=== PATIENT | male | born 1985 | race American Indian/Alaskan Native ===

== ENCOUNTER 2018-05-12 01:51 | Emergency (ER) | payer BC ==
[2018-05-12 02:05] VITALS: RESP 14; O2SAT 98
[2018-05-12] MEDS ORDERED: Sodium Chloride 0.9% 500 ML IV ONE ×2 (02:50→03:08)
[2018-05-12 03:12] LABS: BASO % 0.6 % (0.0-2.0); EOS # 0.1 K/uL (0.0-0.7); EOS % 2.7 % (0.0-4.0); HEMOGLOBIN 13.8 g/dL (12.0-18.0); LYMPH # 1.1 K/uL (1.0-4.3); LYMPH % 40.1 % (20.0-40.0); MEAN CELL VOLUME 81.5 fL (80.0-94.0); MEAN CORPUSCULAR HEMOGLOBIN 26.9 pg (27.0-31.0); MEAN PLATELET VOLUME 9.7 fL (7.2-11.7); MONO # 0.3 K/uL (0.0-0.8); MONO % 9.7 % (0.0-10.0); NEUT # 1.3 K/uL (1.8-7.0); NEUT % 46.9 % (50.0-75.0); NRBC % 0.2 % (0.0-2.0); RBC 5.14 Mil/uL (4.40-5.90); RED CELL DISTRIBUTION WIDTH 14.6 % (11.5-14.5); WHITE BLOOD COUNT 2.8 K/uL (4.8-10.8)
[2018-05-12 03:13] LABS: ALBUMIN 4.6 g/dL (3.5-5.0); BLOOD UREA NITROGEN 11 mg/dL (9-20); CALCIUM 9.3 mg/dl (8.6-10.4); GFR NON-AFRICAN AMERICAN > 60
[2018-05-12 03:14] LABS: ALB/GLOB RATIO 1.7 (1.0-2.1); ALT/SGPT 39 U/L (21-72); AST/SGOT 23 U/L (17-59)
[2018-05-12 03:44] LABS: URINE BILIRUBIN NEGATIVE (NEGATIVE); URINE BLOOD NEGATIVE (NEGATIVE); URINE CLARITY Clear (Clear); URINE COLOR Yellow (YELLOW); URINE GLUCOSE (UA) NORMAL (Normal); URINE LEUKOCYTE ESTERASE NEG Leu/uL (Negative); URINE PROTEIN NEGATIVE (NEGATIVE)
[2018-05-12 03:58] VITALS: BP 99/60; PULSE 58; TEMP 98.6
--- NOTE | 2018-05-12 04:09 | C.PDOC ---
History Of Present Illness 32 year old male presents to the ED with a variety of symptoms, body aches, malaise, sneezing, itchy watery eyes. Patient also c/o intermittent chest tightness for the past few years. Patient did not take any medications at home for his symptoms. Patient denies fever, chills, nausea, vomit, diarrhea, rash, abdominal pain, rash, recent travel, sick contacts. Time Seen by Provider: 05/12/18 02:17 Chief Complaint (Nursing): Headache History Per: Patient History/Exam Limitations: no limitations Onset/Duration Of Symptoms: Days Current Symptoms Are (Timing): Still Present Quality: "Pain" Additional History Per: Patient Past Medical History Reviewed: Historical Data, Nursing Documentation, Vital Signs Vital Signs: Last Vital Signs Temp 98.6 F 05/12/18 03:57 Pulse 58 L 05/12/18 03:57 Resp 14 05/12/18 03:57 BP 99/60 L 05/12/18 03:57 Pulse Ox 98 05/12/18 03:57 - Medical History PMH: No Chronic Diseases Surgical History: No Surg Hx Family History: States: Unknown Family Hx - Social History Hx Alcohol Use: No Hx Substance Use: No - Immunization History Hx Tetanus Toxoid Vaccination: Yes Hx Influenza Vaccination: No Hx Pneumococcal Vaccination: No Review Of Systems Constitutional: Positive for: Malaise. Negative for: Fever, Chills ENT: Negative for: Nose Discharge, Nose Congestion Cardiovascular: Positive for: Chest Pain Respiratory: Negative for: Cough, Shortness of Breath Gastrointestinal: Negative for: Nausea, Vomiting, Abdominal Pain, Diarrhea Neurological: Negative for: Weakness, Numbness, Headache, Dizziness Physical Exam - Physical Exam Appears: Non-toxic, No Acute Distress Skin: Normal Color, Warm, Dry Head: Atraumatic, Normacephalic Eye(s): bilateral: Normal Inspection Oral Mucosa: Moist Neck: Normal ROM, Supple Chest: Symmetrical Cardiovascular: Rhythm Regular Respiratory: Normal Breath Sounds, No Rales, No Rhonchi, No Wheezing Gastrointestinal/Abdominal: Soft, No Tenderness, No Guarding, No Rebound Extremity: Normal ROM, No Tenderness, No Swelling Neurological/Psych: Oriented x3, Normal Speech, Normal Cognition Gait: Steady ED Course And Treatment - Laboratory Results Result Diagrams: 05/12/18 03:01 05/12/18 03:01 ECG: Interpreted By Me ECG Rhythm: Sinus Bradycardia (58) ECG Interpretation: No Acute Changes O2 Sat by Pulse Oximetry: 98 (ON RA) Pulse Ox Interpretation: Normal Progress Note: Plan: - Labs. - IV fluids. - Toradol 15 mg IVP. - UA. Patient reports improvement after medication was given. Patient's lab results reviewed and discussed with patient. Patient was advised to follow up with PMD. Disposition Discussed With Dr.: [email or web address] Counseled Patient/Family Regarding: Diagnosis, Need For Followup, Rx Given - Disposition Referrals: [facility] [Outside] Disposition: HOME/ ROUTINE Disposition Time: 04:06 Condition: STABLE Additional Instructions: Please follow up in clinic for further evaluation Return to ER if worse Prescriptions: Ibuprofen [Motrin] 600 mg PO Q6H #20 tab Instructions: Muscle and Bone Pain (DC) Forms: [facility] ([place]) - Clinical Impression Clinical Impression: Headache, Myalgia - PA / PLASMA PROCESSOR / Resident Statement MD/DO has reviewed & agrees with the documentation as recorded. - Scribe Statement The provider has reviewed the documentation as recorded by the Scribe Michael Ba All medical record entries made by the Scribe were at my direction and personally dictated by me. I have reviewed the chart and agree that the record accurately reflects my personal performance of the history, physical exam, medical decision making, and the department course for this patient. I have also personally directed, reviewed, and agree with the discharge instructions and disposition.
--- NOTE | 2018-05-16 12:30 | CARD ---
APPROVED REPORT Date of service: 05/12/2018 EKG Measurement Heart [id number] <Conclusion> Sinus bradycardia Otherwise normal ECG
== END 2018-05-12 04:45 | disposition home or self-care (01) ==
LOC: C.ER 01:51
DX: R51 Headache (principal); M79.10 Myalgia, unspecified site
CPT/HCPCS: 80053; 81001; 85025; 93005; 96374; 99284; J1885; J7040